=== PATIENT | male | born 1990 | race Hispanic/Latino ===

== ENCOUNTER 2017-07-20 17:51 | Emergency (ER) | payer OTHER ==
[2017-07-20] MEDS ORDERED: Ketorolac Tromethamine 60 MG/2 ML VIAL ONE (18:10)
[2017-07-20] MEDS ORDERED: HYDROcodone/Acetaminophen 10/325 mg Tablet ONE (18:10)
--- NOTE | 2017-07-20 19:55 | CT ---
CT BRAIN 07/20/17 HISTORY: 26-year-old with history of head injury. The patient was found on the ground. Noncontrast enhanced CT images of the brain is obtained. The brain is unremarkable. No evidence of intracranial masses, hemorrhage or strokes or contusions s een. Ventricles are of normal size. IMPRESSION: Normal CT brain. POS: [facility]
--- NOTE | 2017-07-20 19:59 | CT ---
NONCONTRAST ENHANCED CT IMAGES FACIAL BONES: 07/20/17 HISTORY: Head injury, trauma. Axial images obtained with coronal and sagittal reconstructions. CT images demonstrate a left mandibular fracture in oblique plane extending through the left mandibu lar angle. Proximal and distal fracture fragments are not significantly displaced. No evidence of ri ght sided mandibular abnormality seen. No other facial fractures seen. IMPRESSION: Oblique left mandibular angle fracture. POS: [facility]
== END 2017-07-20 19:58 | disposition home or self-care (01) ==
LOC: ERS 17:51
DX: S02.652A Fracture of angle of left mandible, initial encounter for closed fracture (principal); W22.8XXA Striking against or struck by other objects, initial encounter; Y99.0 Civilian activity done for income or pay
CPT/HCPCS: 70450; 70486; 96372; J1885

== ENCOUNTER 2017-09-29 19:09 | Emergency (ER) | payer OTHER ==
[~2017-09-29 19:09] MED LIST: ISOVUE-370 76%-LOCM 1 ML ONE
[2017-09-29 20:28] LABS: #Eosinphils 0.1 thou/uL (0.0-0.7); #Lymphocytes 2.7 thou/uL (1.20-3.40); #Neutrophils 6.8 thou/uL (1.40-6.50); %Basophils 0.2 % (0.0-1.0); %Eosinophils 1.4 % (0.0-10.0); %Lymphocytes 25.4 % (21.0-51.0); %Monocytes 9.4 % (0.0-10.0); %Neutrophils 63.6 % (42.0-75.0); Hemoglobin 16.5 g/dL (14.0-18.0); Mean Corpuscular HGB CONC 32.8 g/dL (32.0-36.0); Mean Corpuscular Hemoglobin 30.9 pg (27.0-31.0); Mean Corpuscular Volume 94.1 fl (80.0-94.0); Mean Platelet Volume 7.6 fL (7.4-10.4); Platelet Count 222 thou/uL (130-400); RBC Distribution Width 11.4 % (11.5-14.5); Red Blood Cell (RBC) Count 5.34 mill/uL (4.70-6.10); White Blood Cell (WBC) Count 10.7 thou/uL (4.8-10.8)
[2017-09-29 20:29] LABS: Bilirubin Negative (Negative); Blood, Urine Negative (Negative); Clarity CLOUDY (Clear); Glucose, Urine (Dipstick) Negative (Negative); Leukocyte Negative (Negative); Nitrite Negative (Negative); Protein, Urine (Dipstick) Negative (Neg-Trace); pH, Urine 7.5 (5.0-9.0)
[2017-09-29 20:48] LABS: ALT (SGPT) 21 U/L (8-55); AST (SGOT) 19 U/L (5-34); Albumin 4.1 g/dL (3.5-5.0); Alkaline Phosphatase 93 U/L (40-150); Anion Gap 14 mmol/L (10-20); BUN (Urea Nitrogen) 8 mg/dL (8.9-20.6); Bilirubin, Total 1.2 mg/dL (0.2-1.2); Calc. Creatinine Clearance 0 mL/min (70-130); Calcium 9.7 mg/dL (7.8-10.44); Carbon Dioxide 31 mmol/L (22-29); Chloride 99 mmol/L (98-107); Estimated GFR-MDRD Greater than 90; Globulin 3.4 g/dL (2.4-3.5); Glucose 89 mg/dL (70-105); Lipase 54 U/L (8-78); Potassium 4.4 mmol/L (3.5-5.1); Protein, Total 7.5 g/dL (6.0-8.3); Sodium 140 mmol/L (136-145)
[2017-09-29] MEDS ORDERED: Morphine 4 MG/ML VIAL ONE ×2 (21:51→23:42)
--- NOTE | 2017-09-29 22:43 | CT ---
EXAM: ABDOMEN CT WITH CONTRAST PELVIC CT WITH CONTRAST 09/29/17 HISTORY: Abdominal pain. Right upper quadrant and right lower quadrant pain. COMPARISON: None. TECHNIQUE: An abdomen and pelvic CT are performed with IV contrast. Enteric contrast was not administered. Coron al reformatted images are submitted for interpretation. FINDINGS: ABDOMEN CT: Lung bases are clear. Heart size is normal. No pericardial effusion. The descending thoracic aorta an d abdominal aorta have a normal caliber. No periaortic fat stranding. Symmetric attenuation of the psoas muscles. Intra and extrahepatic portal vein is patent. There is periportal edema. Liver, spleen, pancreas, and adrenal glands have appropriate enhancement. Symmetric enhancement of the kidneys. Bilaterally, no obstructive uropathy. Gallbladder is mildly prominent. There is pericholecystic fluid. The visualized common bile duct does not appear to be dilated. No gastrohepatic, retrocrural or periportal lymphadenopathy. There are enlarged mesenteric lymph nodes. No mass, lymphadenopathy or free air. No free fluid. Limited evaluation of the alimentary canal by the absence of oral contrast. Gastric mucosa, duodenum and small bowel loops are normal in caliber. Ileocecal junction is normal. Scattered fecal material i n a nondistended, nondilated colon. There is diverticulosis, without evidence of diverticulitis. Norm al caliber appendix. PELVIC CT: There is free fluid in the pelvis. No mass, lymphadenopathy or free air. Urinary bladder is unremarka ble. No lytic or blastic lesions in the osseous structures. IMPRESSION: 1. CT evidence of cholecystitis. 2. Free fluid in the pelvis, presumed to be secondary to inflammation of the gallbladder. 3. Normal caliber appendix. 4. Diverticulosis without evidence of diverticulitis. POS: [facility]
== END 2017-09-30 01:02 | disposition home or self-care (01) ==
LOC: ERS 19:09
DX: K81.0 Acute cholecystitis (principal)
CPT/HCPCS: 36415; 74177; 80053; 81003; 83690; 85025; 96374; 96376; J2270

== ENCOUNTER 2018-05-04 08:42 | Emergency (ER) | payer OTHER ==
[2018-05-04] MEDS ORDERED: Lidocaine 1% w/Epinephrine 1:100K 20 ML VIAL ONE (09:20)
[2018-05-04] MEDS ORDERED: Lidocaine 1% PF 5 ML VIAL ONE (11:24)
[2018-05-04] MEDS ORDERED: Bacitracin Zinc 1 Packet ONE (11:29)
== END 2018-05-04 12:30 | disposition home or self-care (01) ==
LOC: ERS 08:42
DX: S00.432A Contusion of left ear, initial encounter (principal); W22.8XXA Striking against or struck by other objects, initial encounter
CPT/HCPCS: 69000; J2001

== ENCOUNTER 2019-11-20 19:30 | Emergency (ER) | payer OTHER ==
--- NOTE | 2019-11-20 23:03 | RAD ---
3 views left hand: 11/20/2019 COMPARISON: 11/20/2019 HISTORY: Injury, trauma, pain FINDINGS: There is soft tissue swelling at the base of the fifth finger. Two punctate metallic foreign bodies are noted along the dorsal cortex of the mid shaft fifth proxima l phalanx. No associated fracture or dislocation. IMPRESSION: Punctate metallic densities along the dorsal cortex of the midshaft fifth proximal phalan x. No acute fracture or dislocation.
[2019-11-20] MEDS ORDERED: Lidocaine 1% PF 5 ML VIAL ONE (23:38)
[2019-11-21] MEDS ORDERED: Bacitracin 1 PK ONE (00:17)
== END 2019-11-21 01:13 | disposition home or self-care (01) ==
LOC: ERS 19:30
DX: S61.422A Laceration with foreign body of left hand, initial encounter (principal); W23.0XXA Caught, crushed, jammed, or pinched between moving objects, initial encounter; Y99.0 Civilian activity done for income or pay
CPT/HCPCS: 12002; J2001